=== PATIENT | female | born 1985 | race African-American/Black ===

== ENCOUNTER 2017-08-04 11:25 | Emergency (ER) | payer OTHER ==
--- NOTE | 2017-08-04 15:20 | ER ---
Nurse's Notes [facility] Name: Maru Combs Age: 31 yrs Sex: Female : 1985 Arrival Date: 08/04/2017 Time: 11:26 Bed Treatment Private MD: None, None Diagnosis: Dental pain Presentation: 08/04 11:41 Presenting complaint: Patient states: Reports jaw "locked up" for 2 days. Patient able aj to move jaw in triage. Transition of care: patient was not received from another setting of care. Onset of symptoms was August 02, 2017. Care prior to arrival: None. 11:41 Method Of Arrival: Wheelchair 11:41 Acuity: MARCELA 5 aj 14:45 Risk Assessment: Do you want to hurt yourself or someone else? Patient reports no aa5 desire to harm self or others. Initial Sepsis Screen: Does the patient meet any 2 criteria? No. Patient's initial sepsis screen is negative. Does the patient have a suspected source of infection? No. Patient's initial sepsis screen is negative. Triage Assessment: 11:42 General: Appears in no apparent distress. uncomfortable, Behavior is cooperative, aj drowsy. Pain: Complains of pain in right zygomatic area and right cheek. EENT: Reports pain in right zygomatic area and right cheek. Neuro: Level of Consciousness is awake, alert, obeys commands, Oriented to person, place, time, situation, Appropriate for age. Respiratory: Airway is patent Respiratory effort is even, unlabored, Respiratory pattern is regular, symmetrical. Derm: Skin is intact, is healthy with good turgor, Skin is pink, warm \\T\\ dry. normal. TAX SPECIALIST: 11:42 LMP 07/11/2017 aj Historical: - Allergies: 11:42 No Known Allergies; aj - Home Meds: 11:42 None [Active]; aj - PMHx: 11:42 Back pain; Bipolar disorder; Depression; Schizophrenia; aj - PSHx: 11:42 None; aj - Immunization history:: Adult Immunizations up to date, Last tetanus immunization: < 5 years ago. - Social history:: Smoking status: Patient uses tobacco products, smokes one pack cigarettes per day. - Ebola Screening: : No symptoms or risks identified at this time. Screenin:45 Abuse screen: Denies threats or abuse. Nutritional screening: No deficits noted. aa5 Tuberculosis screening: No symptoms or risk factors identified. Fall Risk None identified. Assessment: 14:45 General: Appears uncomfortable, Behavior is calm, cooperative. Pain: Complains of pain aa5 in jaw Pain does not radiate. Pain currently is 10 out of 10 on a pain scale. Quality of pain is described as aching, Pain began 2-3 days ago. Is intermittent. Neuro: Level of Consciousness is awake, alert, obeys commands, Oriented to person, place, time, situation, Home Manager are equal bilaterally Moves all extremities. Speech is normal, Facial symmetry appears normal, Pupils are PERRLA. Cardiovascular: No deficits noted. Respiratory: Airway is patent Respiratory effort is even, unlabored, Respiratory pattern is regular, symmetrical. GI: No signs and/or symptoms were reported involving the gastrointestinal system. : No signs and/or symptoms were reported regarding the genitourinary system. EENT: No signs and/or symptoms were reported regarding the EENT system. Derm: Skin is dry, Skin is normal, Skin temperature is warm. Musculoskeletal: Range of motion: intact in all extremities, Pt states "My jaw has been locking up for the last 2 days, it comes and goes". Pt is able to move jaw upon command, pt is able to open her mouth upon command. Vital Signs: 11:42 BP 123 / 90; Pulse 83; Resp 16; Temp 97.4; Pulse Ox 96% on R/A; Weight 63.5 kg; Height aj 5 ft. 2 in. (157.48 cm); Pain 10/10; 11:42 Body Mass Index 25.61 (63.50 kg, 157.48 cm) aj ED Course: 11:26 Patient arrived in ED. mr 11:27 None, None is Private Physician. mr 11:42 Triage completed. aj 11:42 Arm band placed on right wrist. Patient placed in waiting room, Patient notified of wait time. 14:45 Patient has correct armband on for positive identification. aa5 14:45 No provider procedures requiring assistance completed. aa5 14:51 Eduarda Anne, MANJU is Primary Nurse. aa5 15:04 Myles Sunshine NP is PHCP. pm1 15:04 Mickey Rose MD is Attending Physician. pm1 15:32 Patient did not have IV access during this emergency room visit. sv Administered Medications: 15:32 Drug: Tylenol #3 (300 mg-30 mg) 2 tabs Route: PO; sv 15:32 Follow up: Response: Medication administered at discharge. sv Outcome: 15:19 Discharge ordered by . pm1 15:32 Discharged to home ambulatory, with friend. sv 15:32 Condition: stable 15:32 Discharge instructions given to patient, Instructed on discharge instructions, follow up and referral plans. no drinking with medication, no driving heavy equipment, medication usage, Demonstrated understanding of instructions, follow-up care, medications, Prescriptions given X 1. 15:33 Patient left the ED. sv Signatures: Rosalind Motley RN RN sv Myers, Amanda, RN RN aj Rivera, Maria mr Calderon, Eduarda RN RN aa5 Myles Sunshine NP PROGRAM MANAGER ENVIRONMENTAL PLANNING pm1 Corrections: (The following items were deleted from the chart) 19:10 14:45 Neuro: Level of Consciousness is awake, alert, obeys commands, Oriented to aa5 person, place, time, situation, aa5 19:11 14:45 Musculoskeletal: Range of motion: intact in all extremities, Pt states "My jaw aa5 has been locking up for the last 2 days, it comes and goes" aa5
--- NOTE | 2017-08-04 15:20 | EDPHYS ---
Physician Documentation [facility] Name: Maru Combs Age: 31 yrs Sex: Female : 1985 Arrival Date: 08/04/2017 Time: 11:26 Bed Treatment Private MD: None, None ED Physician Mickey Rose HPI: 08/04 15:15 This 31 yrs old Black Female presents to ER via Wheelchair with complaints of Right jaw pm1 and dental pain. 15:15 The patient presents with pain. pm1 15:15 The problem is located in the upper right first molar and right cheek. Onset: The pm1 symptoms/episode began/occurred 2 day(s) ago. Duration: The symptoms are continuous. Modifying factors: The symptoms are alleviated by nothing, the symptoms are aggravated by nothing. Associated signs and symptoms: Pertinent positives: pain, Pertinent negatives: dysphagia, fever, inability to eat, redness in area, Patient able to smoke without any difficulty. Severity of symptoms: in the emergency department the symptoms are actually worse. The patient has not experienced similar symptoms in the past. CLINICAL INFORMATICS SPECIALIST: 11:42 LMP 07/11/2017 aj Historical: - Allergies: 11:42 No Known Allergies; aj - Home Meds: 11:42 None [Active]; aj - PMHx: 11:42 Back pain; Bipolar disorder; Depression; Schizophrenia; aj - PSHx: 11:42 None; aj - Immunization history:: Adult Immunizations up to date, Last tetanus immunization: < 5 years ago. - Social history:: Smoking status: Patient uses tobacco products, smokes one pack cigarettes per day. - Ebola Screening: : No symptoms or risks identified at this time. ROS: 15:15 Constitutional: Negative for fever, chills, and weight loss, Eyes: Negative for injury, pm1 pain, redness, and discharge. 15:15 Neck: Negative for injury, pain, and swelling, Cardiovascular: Negative for chest pain, palpitations, and edema, Respiratory: Negative for shortness of breath, cough, wheezing, and pleuritic chest pain, Abdomen/GI: Negative for abdominal pain, nausea, vomiting, diarrhea, and constipation, Back: Negative for injury and pain, MS/Extremity: Negative for injury and deformity, Skin: Negative for injury, rash, and discoloration, Neuro: Negative for headache, weakness, numbness, tingling, and seizure. 15:15 ENT: Positive for dental pain, Negative for ear pain, sore throat, difficulty swallowing, difficulty handling secretions, hoarseness. Exam: 15:15 Constitutional: This is a well developed, well nourished patient who is awake, alert, pm1 and in no acute distress. Head/Face: Normocephalic, atraumatic. Eyes: Pupils equal round and reactive to light, extra-ocular motions intact. Lids and lashes normal. Conjunctiva and sclera are non-icteric and not injected. Cornea within normal limits. Periorbital areas with no swelling, redness, or edema. 15:15 Neck: Trachea midline, no thyromegaly or masses palpated, and no cervical lymphadenopathy. Supple, full range of motion without nuchal rigidity, or vertebral point tenderness. No Meningismus. Chest/axilla: Normal chest wall appearance and motion. Nontender with no deformity. No lesions are appreciated. Cardiovascular: Regular rate and rhythm with a normal S1 and S2. No gallops, murmurs, or rubs. Normal PMI, no JVD. No pulse deficits. Respiratory: Lungs have equal breath sounds bilaterally, clear to auscultation and percussion. No rales, rhonchi or wheezes noted. No increased work of breathing, no retractions or nasal flaring. Back: No spinal tenderness. No costovertebral tenderness. Full range of motion. Skin: Warm, dry with normal turgor. Normal color with no rashes, no lesions, and no evidence of cellulitis. MS/ Extremity: Pulses equal, no cyanosis. Neurovascular intact. Full, normal range of motion. 15:15 ENT: External ear(s): are unremarkable, Ear canal(s): are normal, TM's: are normal, Nose: is normal, no acute changes, Mouth: Gums: normal with healthy appearance, Tongue: is normal, abscess, is not appreciated, drooling, is not appreciated, negative trismus. Patient able to talk without difficulty, Posterior pharynx: is normal, no acute changes, Airway: normal, no evidence of obstruction, patent, Dental exam: dental caries, that is moderate, diffusely, Voice: no acute changes. 15:15 Neuro: Orientation: is normal, Mentation: is normal, Motor: is normal, moves all fours, Gait: is steady, at a normal pace, without difficulty. Vital Signs: 11:42 BP 123 / 90; Pulse 83; Resp 16; Temp 97.4; Pulse Ox 96% on R/A; Weight 63.5 kg; Height aj 5 ft. 2 in. (157.48 cm); Pain 10/10; 11:42 Body Mass Index 25.61 (63.50 kg, 157.48 cm) MDM: 15:14 Patient medically screened. pm1 15:18 Data reviewed: vital signs. Data interpreted: Pulse oximetry: on room air is 96 %. pm1 Interpretation: normal. Counseling: I had a detailed discussion with the patient and/or guardian regarding: the historical points, exam findings, and any diagnostic results supporting the discharge/admit diagnosis, the need for outpatient follow up, a dentist, to return to the emergency department if symptoms worsen or persist or if there are any questions or concerns that arise at home. Administered Medications: 15:32 Drug: Tylenol #3 (300 mg-30 mg) 2 tabs Route: PO; sv 15:32 Follow up: Response: Medication administered at discharge. sv Disposition: 19:16 Co-signature as Attending Physician, Mickey Rose MD I agree with the assessment and kdr plan of care. Disposition: 08/04/17 15:19 Discharged to Home. Impression: Dental pain. - Condition is Stable. - Discharge Instructions: Dental Pain. - Prescriptions for Amoxicillin 500 mg Oral Capsule - take 1 capsule by ORAL route every 8 hours for 10 days; 30 tablet. Tylenol- Codeine #3 300-30 mg Oral Tablet - take 2 tablets by ORAL route every 6 hours As needed; 20 tablet. - Medication Reconciliation Form, Thank You Letter, Antibiotic Education, Prescription Opioid Use form. - Follow up: Emergency Department; When: As needed; Reason: Worsening of condition. Follow up: Private Physician; When: 2 - 3 days; Reason: Recheck today's complaints, Continuance of care, Re-evaluation by your physician. - Problem is new. - Symptoms have improved. Signatures: Rosalind Motley RN RN sv Myers, Amanda, RN RN aj Rittger, Kevin, MD MD [facility] Eduarda Anne RN RN 5 Myles Sunshine NP FLEXOGRAPHIC PRESS SET UP OPERATOR pm1 Corrections: (The following items were deleted from the chart) 15:33 15:19 08/04/2017 15:19 Discharged to Home. Impression: Dental pain. Condition is sv Stable. Forms are Medication Reconciliation Form, Thank You Letter, Antibiotic Education, Prescription Opioid Use. Follow up: Emergency Department; When: As needed; Reason: Worsening of condition. Follow up: Private Physician; When: 2 - 3 days; Reason: Recheck today's complaints, Continuance of care, Re-evaluation by your physician. Problem is new. Symptoms have improved. pm1
[2017-08-04] MEDS ORDERED: CODEINE 30MG/APAP 300MG TAB ONE (15:30)
== END 2017-08-04 15:33 | disposition home or self-care (01) ==
LOC: ER 11:25
DX: K08.89 Other specified disorders of teeth and supporting structures (principal)
CPT/HCPCS: 99283

== ENCOUNTER 2017-11-26 18:53 | Emergency (ER) | payer OTHER, SELFPAY ==
[2017-11-26] MEDS ORDERED: ALBUTEROL 2.5 MG/3 ML NEB SOL ONE (19:40)
[2017-11-26 20:06] LABS: Urine Blood NEGATIVE (NEG); Urine Glucose NEGATIVE (NEG); Urine Protein NEGATIVE (NEG); Urine Specific Gravity 1.025 (1.005-1.030)
--- NOTE | 2017-11-26 20:29 | RAD REPORT ---
EXAM DESCRIPTION: Ame Laura (2 Views)11/26/2017 8:14 pm CLINICAL HISTORY: Cough COMPARISON: None FINDINGS: A bullu is suspected within the right upper lobe. Otherwise, the lungs appear clear of acute infiltrate. The heart is normal size IMPRESSION: No acute abnormalities displayed
--- NOTE | 2017-11-26 20:55 | ER ---
Nurse's Notes [facility] Name: Maru Combs Age: 32 yrs Sex: Female : 1985 Arrival Date: 11/26/2017 Time: 18:54 Bed 12 Private MD: Diagnosis: Acute bronchitis;Mild persistent asthma with (acute) exacerbation Presentation: 11/26 19:06 Presenting complaint: Patient states: Cough, congestion, nasal congestion for 2 weeks. aj Patient reports heavy vaginal bleeding for 2 weeks with clots. Patient is unsure if she was and she cannot remember her last period. Patient stated upon arrival "I'm gonna need that promethazine because that's the only thing that works.". Transition of care: patient was not received from another setting of care. Onset of symptoms was November 13, 2017. Risk Assessment: Do you want to hurt yourself or someone else? Patient reports no desire to harm self or others. Initial Sepsis Screen: Does the patient meet any 2 criteria? No. Patient's initial sepsis screen is negative. Does the patient have a suspected source of infection? No. Patient's initial sepsis screen is negative. Care prior to arrival: None. 19:06 Method Of Arrival: Ambulatory 19:06 Acuity: MARCELA 3 aj 19:10 Note Patient drove herself to ER. aj Triage Assessment: 19:08 General: Appears in no apparent distress. comfortable, Behavior is calm, cooperative, aj appropriate for age. Pain: Complains of pain in back, chest and pelvis. EENT: Reports nasal congestion nasal discharge. Neuro: Level of Consciousness is awake, alert, obeys commands, Oriented to person, place, time, situation, Appropriate for age. Respiratory: Reports cough that is productive, Airway is patent Respiratory effort is even, unlabored, Respiratory pattern is regular, symmetrical. GI: Abdomen is flat, non-distended, Reports nausea. : Reports vaginal bleeding that is heavy flow. Derm: Skin is intact, is healthy with good turgor, Skin is pink, warm \\T\\ dry. normal. DIRECTOR OF OPERATIONS HOME HEALTH: 19:08 LMP N/A - Patient is unsure of LMP aj Historical: - Allergies: 19:08 No Known Allergies; aj - Home Meds: 19:08 None [Active]; aj - PMHx: 19:08 Back pain; Bipolar disorder; Depression; Schizophrenia; aj - PSHx: 19:08 None; aj - Immunization history:: Adult Immunizations not immunized. - Social history:: Smoking status: Patient uses tobacco products, smokes one pack cigarettes per day. - Ebola Screening: : Patient negative for fever greater than or equal to 101.5 degrees Fahrenheit, and additional compatible Ebola Virus Disease symptoms Patient denies exposure to infectious person Patient denies travel to an Ebola-affected area in the 21 days before illness onset No symptoms or risks identified at this time. Screenin:48 Abuse screen: Denies threats or abuse. Denies injuries from another. Nutritional mg2 screening: No deficits noted. Tuberculosis screening: No symptoms or risk factors identified. Fall Risk None identified. Assessment: 20:45 General: Appears in no apparent distress. comfortable, Behavior is calm, cooperative. mg2 Pain: Denies pain. Neuro: Level of Consciousness is awake, alert, obeys commands, Oriented to person, place, time, situation. Cardiovascular: Capillary refill < 3 seconds Patient's skin is warm and dry. Respiratory: Reports cough that is non-productive. GI: Bowel sounds present X 4 quads. Abd is soft and non tender. : Urine is clear. EENT: No signs and/or symptoms were reported regarding the EENT system. Derm: Skin is intact, Skin is pink, warm \\T\\ dry. normal. Musculoskeletal: Circulation, motion, and sensation intact. 21:12 Reassessment: Patient came back into ER wrapped in hospital white blanket. Physician danna instructed patient to wait in bed 12 and he would be in to speak with her. 21:30 Reassessment: Patient appears in no apparent distress at this time. No changes from aj previously documented assessment. Patient and/or family updated on plan of care and expected duration. Pain level reassessed. Patient is alert, oriented x 3, equal unlabored respirations, skin warm/dry/pink. Patient denies pain at this time. Vital Signs: 19:08 BP 104 / 66; Pulse 88; Resp 15; Temp 97.8; Pulse Ox 100% on R/A; Weight 59.87 kg; aj Height 5 ft. 2 in. (157.48 cm); 20:48 BP 105 / 68; Pulse 85; Resp 18; Pulse Ox 100% on R/A; Pain 0/10; mg2 21:30 BP 103 / 67; Pulse 89; Resp 20; Pulse Ox 98% on R/A; aj 19:08 Body Mass Index 24.14 (59.87 kg, 157.48 cm) ED Course: 18:54 Patient arrived in ED. rg4 19:07 Triage completed. aj 19:08 Arm band placed on right wrist. Patient placed in an exam room. aj 19:14 Bakari Paz MD is Attending Physician. 19:15 Jonah Banegas, RN is Primary Nurse. mg2 20:11 X-ray completed. Patient tolerated procedure well. bb2 20:11 XRAY Chest Pa And Lat (2 Views) In Process Unspecified. EDMS 20:48 Patient has correct armband on for positive identification. Bed in low position. Call mg2 light in reach. Side rails up X 1. Pulse ox on. NIBP on. Door closed. Warm blanket given. 20:48 No provider procedures requiring assistance completed. mg2 20:59 Patient did not have IV access during this emergency room visit. mg2 21:11 Primary Nurse role handed off by Jonah Banegas, MANJU aj 21:30 Sue Fairchild, RN is Primary Nurse. Administered Medications: 19:40 Drug: Albuterol 2.5 mg Route: Inhalation; mg2 Outcome: 20:55 Discharge ordered by . 20:59 Discharged to home ambulatory. mg2 20:59 Condition: stable 21:01 Discharge instructions given to patient was not inside the room when im about to mg2 discharge her. 21:02 Patient left the ED. mg2 21:30 Discharged to home ambulatory. aj 21:30 Condition: good 21:30 Discharge instructions given to patient, Instructed on discharge instructions, follow up and referral plans. medication usage, Demonstrated understanding of instructions, follow-up care, medications, Prescriptions given X 2. 21:31 Patient left the ED. aj Signatures: Dispatcher [employer] [facility] Sue Fairchild, RN RN Lolly Garcia 4 Bakari Paz MD MD Gabriella Griffiths 2 Jonah Banegas, MANJU NUNES mg2
--- NOTE | 2017-11-26 20:55 | EDPHYS ---
Physician Documentation [facility] Name: Maru Combs Age: 32 yrs Sex: Female : 1985 Arrival Date: 11/26/2017 Time: 18:54 Bed 12 Private MD: ED Physician Bakari Paz HPI: 11/26 20:51 This 32 yrs old Black Female presents to ER via Ambulatory with complaints of Cough. gs 20:51 The patient or guardian reports cough, that is intermittent. Onset: The gs symptoms/episode began/occurred 3 day(s) ago. Severity of symptoms: At their worst the symptoms were moderate, in the emergency department the symptoms are unchanged. Modifying factors: The symptoms are alleviated by nothing, the symptoms are aggravated by nothing. Associated signs and symptoms: Pertinent positives: fever, Pertinent negatives: chest pain, sore throat. The patient has experienced similar episodes in the past, a few times. The patient has not recently seen a physician. 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 - Social history:: Smoking status: Patient uses tobacco products, smokes one pack cigarettes per day. - Ebola Screening: : Patient negative for fever greater than or equal to 101.5 degrees Fahrenheit, and additional compatible Ebola Virus Disease symptoms Patient denies exposure to infectious person Patient denies travel to an Ebola-affected area in the 21 days before illness onset No symptoms or risks identified at this time. ROS: 20:51 All other systems are negative. gs 20:51 Back: Positive for pain with coughing. gs 20:51 : Positive for vaginal bleeding. Exam: 20:51 Head/Face: Normocephalic, atraumatic. Eyes: Pupils equal round and reactive to light, gs extra-ocular motions intact. Lids and lashes normal. Conjunctiva and sclera are non-icteric and not injected. Cornea within normal limits. Periorbital areas with no swelling, redness, or edema. ENT: Nares patent. No nasal discharge, no septal abnormalities noted. Tympanic membranes are normal and external auditory canals are clear. Oropharynx with no redness, swelling, or masses, exudates, or evidence of obstruction, uvula midline. Mucous membranes moist. Neck: Trachea midline, no thyromegaly or masses palpated, and no cervical lymphadenopathy. Supple, full range of motion without nuchal rigidity, or vertebral point tenderness. No Meningismus. Chest/axilla: Normal chest wall appearance and motion. Nontender with no deformity. No lesions are appreciated. 20:51 Constitutional: The patient appears alert, awake. 20:51 Cardiovascular: Regular rate and rhythm with a normal S1 and S2. No gallops, murmurs, gs or rubs. Normal PMI, no JVD. No pulse deficits. Abdomen/GI: Soft, non-tender, with normal bowel sounds. No distension or tympany. No guarding or rebound. No evidence of tenderness throughout. Back: No spinal tenderness. No costovertebral tenderness. Full range of motion. Skin: Warm, dry with normal turgor. Normal color with no rashes, no lesions, and no evidence of cellulitis. MS/ Extremity: Pulses equal, no cyanosis. Neurovascular intact. Full, normal range of motion. Neuro: Awake and alert, GCS 15, oriented to person, place, time, and situation. Cranial nerves II-XII grossly intact. Motor strength 5/5 in all extremities. Sensory grossly intact. Cerebellar exam normal. Normal gait. 20:51 Respiratory: the patient does not display signs of respiratory distress, Breath sounds: wheezing: expiratory that is mild, is scattered. Vital Signs: 19:08 BP 104 / 66; Pulse 88; Resp 15; Temp 97.8; Pulse Ox 100% on R/A; Weight 59.87 kg; aj Height 5 ft. 2 in. (157.48 cm); 20:48 BP 105 / 68; Pulse 85; Resp 18; Pulse Ox 100% on R/A; Pain 0/10; mg2 21:30 BP 103 / 67; Pulse 89; Resp 20; Pulse Ox 98% on R/A; aj 19:08 Body Mass Index 24.14 (59.87 kg, 157.48 cm) aj MDM: 19:22 Patient medically screened. 20:51 Differential Diagnosis: Bronchitis Influenza Pneumonia. Data reviewed: vital signs, nurses notes. Response to treatment: the patient's symptoms have markedly improved after treatment, and as a result, I will discharge patient. 11/26 19:34 Order name: Urine Dipstick--Ancillary (enter results); Complete Time: 20:08 [facility] 11/26 20:08 Interpretation: UESTR 2+. 11/26 19:34 Order name: Urine --Ancillary (enter results); Complete Time: 20:08 [facility] 11/26 19:24 Order name: XRAY Chest Pa And Lat (2 Views); Complete Time: 20:49 11/26 20:08 Order name: Urine Microscopic Only 11/26 21:21 Order name: Urine Culture EDKS Administered Medications: 19:40 Drug: Albuterol 2.5 mg Route: Inhalation; mg2 Disposition: 11/26/17 20:55 Discharged to Home. Impression: Acute bronchitis, Mild persistent asthma with (acute) exacerbation. - Condition is Stable. - Discharge Instructions: Acute Bronchitis, Adult, Chronic Bronchitis. - Prescriptions for Prednisone 20 mg Oral Tablet - take 2 tablet by ORAL route once daily for 5 days; 10 tablet. Albuterol Sulfate 90 mcg/actuation - inhale 1-2 puff by INHALATION route every 4-6 hours; 1 Inhaler. - Work release form, Medication Reconciliation Form, Thank You Letter, Antibiotic Education, Prescription Opioid Use form. - Follow up: Private Physician; When: 2 - 3 days; Reason: Re-evaluation by your physician. Signatures: Dispatcher [employer] EDKS Sue Fairchild RN RN aj Starr, Gregory, MD MD Jonah Banegas RN RN mg2 Corrections: (The following items were deleted from the chart) 21:02 20:55 11/26/2017 20:55 Discharged to Home. Impression: Acute bronchitis; Mild mg2 persistent asthma with (acute) exacerbation. Condition is Stable. Forms are Medication Reconciliation Form, Thank You Letter, Antibiotic Education, Prescription Opioid Use. Follow up: Private Physician; When: 2 - 3 days; Reason: Re-evaluation by your physician. 21:31 21:02 11/26/2017 20:55 Discharged to Home. Impression: Acute bronchitis; Mild aj persistent asthma with (acute) exacerbation. Condition is Stable. Discharge Instructions: Acute Bronchitis, Adult, Chronic Bronchitis. Prescriptions for Prednisone 20 mg Oral Tablet - take 2 tablet by ORAL route once daily for 5 days; 10 tablet, Albuterol Sulfate 90 mcg/actuation - inhale 1-2 puff by INHALATION route every 4-6 hours; 1 Inhaler. and Forms are Medication Reconciliation Form, Thank You Letter, Antibiotic Education, Prescription Opioid Use. Follow up: Private Physician; When: 2 - 3 days; Reason: Re-evaluation by your physician. mg2
[2017-11-26 21:19] LABS: Urine Bacteria <20 /HPF (<20); Urine Culture Reflex Order REFLEXED; Urine RBC <5 /HPF (NONE SEEN)
[2017-11-26 21:20] LABS: Urine Trichomonas PRESENT (NONE SEEN)
== END 2017-11-26 21:31 | disposition home or self-care (01) ==
LOC: ER 18:53
DX: J20.9 Acute bronchitis, unspecified (principal); J45.31 Mild persistent asthma with (acute) exacerbation
CPT/HCPCS: 71046; 81003; 81015; 81025; 87086; 87088; 99284